=== PATIENT | female | born 1955 | race Caucasian/White ===

== ENCOUNTER 2024-07-19 10:23 | Emergency (ER) | payer BC, SELFPAY ==
--- NOTE | ~2024-07-19 | XR_ITS ---
CLINICAL HISTORY: foosh 4 view left wrist 3 view left hand Comparison: None Findings: Bones intact. No dislocations. No significant loss of joint space or osteophytes. No erosions. No radiopaque foreign body. IMPRESSION: 1. No acute findings. This document has been electronically signed by: Miller Dasilva MD on 07/19/2024 12:15:21
--- NOTE | ~2024-07-19 | CT_ITS ---
CLINICAL HISTORY: fall + head strike CT head without contrast Comparison: None Findings: No intra-axial mass, midline shift, hydrocephalus, or acute hemorrhage. Mild diffuse volume loss. There is no sinus or mastoid fluid. The orbits are unremarkable. There is no acute fracture. IMPRESSION: 1. No acute intracranial findings. This document has been electronically signed by: Jackson Loomis MD on 07/19/2024 14:47:23
--- NOTE | ~2024-07-19 | CT_ITS ---
CLINICAL HISTORY: fall on chin CT maxillofacial without contrast Comparison: None Findings: No acute fractures. Temporomandibular joints are intact. Paranasal sinuses and mastoid air cells clear. Left front maxillary tooth fracture (tooth 9). Acuity indeterminate. Orbital contents within normal limits. Visualized intracranial contents are within normal limits. No foreign bodies. IMPRESSION: No facial bone fracture identified. Left tooth #9 fracture, age-indeterminate This document has been electronically signed by: Jackson Loomis MD on 07/19/2024 14:45:45
--- NOTE | ~2024-07-19 | CT_ITS ---
CLINICAL HISTORY: fall CT cervical spine without contrast Comparison: None Findings: Normal vertebral body alignment. No significant degenerative change. No acute fractures or dislocations. No acute findings on limited view of the intracranial contents. Subcentimeter thyroid nodules are suggested. No consolidation or effusion at the lung apices. IMPRESSION: No acute findings. Subcentimeter thyroid nodules are suggested. Outpatient thyroid ultrasound could be considered This document has been electronically signed by: Jackson Loomis MD on 07/19/2024 14:45:49
[2024-07-19 11:16] VITALS: BP 132/75; PULSE 72; RESP 18; TEMP 36.6; O2SAT 97; BMI 20.4
--- NOTE | 2024-07-19 11:16 | ED_ITS ---
HPI - Fall General Chief Complaint: Fall Stated Complaint: fall injury to mouth and chin Time Seen by Provider: 07/19/24 14:08 Source: patient Mode of arrival: ambulatory Limitations: no limitations History of Present Illness ED Provider: yareli clark np HPI Narrative: patient is a 6-year-old female who presents emergency department for evaluation after a strictly mechanical trip and fall, reports that she tripped on uneven pavement believes her toe got caught on the area. She fell forward catching herself on a left outstretched hand with resultant chin strike to the ground. This subsequently dislodged her left central incisor which she brought with her and was placed in a cup of milk. She denies loss of consciousness, denies use of anticoagulants. She denies headache, dizziness, lightheadedness, neck pain, neck stiffness, chest pain, shortness of breath, nausea, vomiting, numbness or tingling of the extremities. Related Data Allergies Allergy/AdvReac Type Severity Reaction Status Date / Time No Known Allergies Allergy Verified 07/19/24 11:18 Review of Systems Review of Systems: Yes all other systems are reviewed and are negative [facility] Past Medical History Attestation statement: The following information was validated with the patient. Source: old records reviewed Physical Exam Vital Signs: Vital Signs: Last Vital Signs Temp 97.8 F 07/19/24 11:16 Pulse 72 07/19/24 11:16 Resp 18 07/19/24 11:16 BP 132/75 07/19/24 11:16 Pulse Ox 97 07/19/24 11:16 O2 Del Method Room Air 07/19/24 11:16 BMI result Body Mass Index 20.4 Appearance: Alert.?Oriented to person, place and time. No acute distress.?Normal affect. Head: Normocephalic, atraumatic Eyes: Pupils equal, round and reactive to light.? EOMI. No palpable periorbital deformities or ecchymosis ENT: Pharynx normal.??TM normal bilaterally. No rhinorrhea. No septal hematoma. TM normal bilaterally. Left central incisor avulsion, dried blood to the remaining socket, appears to have remaining root in the socket Neck: Normal inspection.? Neck supple.??No midline cervical spine tenderness, step-offs, deformities. Back: No midline thoracic or lumbar spine tenderness, step-offs, deformities. CVS: Heart sounds normal. Normal heart rate and rhythm.? Pulses normal.?? Respiratory: No respiratory distress.? Lung sounds clear to auscultation bilaterally?? Abdomen: Soft and non-tender. Normoactive bowel sounds Skin: Skin warm and dry.? Normal skin color.? Extremities: No lower extremity edema.? No calf ttp. Full range of motion to bilateral upper and lower extremities. 2+ DP/PT pulse, 2+ radial pulse bilaterally. Neuro: Moves all extremities spontaneously. Sensation intact bilaterally. CN II- XII intact. No focal neuro deficits. Course Course Course Narrative: This is a Rapid Medical Exam performed in triage by Treasure Whiteside PA-C. Full HPI, ROS and PE to be performed by primary ED provider. 69 yo F presenting to the ED c/o facial pain, head strike & loss of front tooth s/p mechanical trip & fall [employer] on uneven pavement. denies LOC or AC. Also reports left hand/wrist pain. PE: + left central incisor dislodged. No midline spinous tenderness or focal neuro deficits Plan: Head/C-spine/facial bone CT, wrist x-ray Medical Decision Making Medical Decision Making MDM Narrative: patient is a 69-year-old female who presents emergency department for evaluation after mechanical trip and fall resulting in a fall onto the left outstretched hand, struck option onto the ground and subsequently dislodged the left central incisor, on evaluation has dried blood to the remaining socket, appears to have remaining root favoring dental fracture rather than complete avulsion, tooth is in milk currently. Endorsing mild pain to this area. She denies any headache. Has no focal neurological deficits on examination. Given age and mechanism of injury obtaining CT head and cervical spine to exclude ICH, SDH, fracture, subluxation. XR of the left hand / wrist has been evaluated and is without acute osseous abnormality no fracture dislocation, pain likely secondary to mild sprain/contusion. Reports minimal pain at this time. Provide Chepe bandage and discussed conservative treatment. Regarding her dental avulsion, we discussed potential option for dental splinting in the emergency department until she is able to see her dental provider urgently, to discuss permanent reimplantation/ dental implant/root canal. patient declines dental splinting. CT head cervical spine without acute pathology, incidental finding of thyroid nodules to be followed up outpatient. Differential Diagnosis Differential Diagnoses: The differential diagnosis associated with the presentation includes (See narrative above) Independent Interpretation I performed an independent interpretation of an: CT Scan ( No ICH, no acute fracture to the left hand /wrist) Radiology Impression Discussion of test interpretation with radiology: I have reviewed the radiologist's reading. Radiologist Impression: XR 4 view left wrist XR 3 view left hand Comparison: None Findings: Bones intact. No dislocations. No significant loss of joint space or osteophytes. No erosions. No radiopaque foreign body. IMPRESSION: 1. No acute findings IMPRESSION: CT head/brain 1. No acute intracranial findings. IMPRESSION: CT cervical spine No acute findings. Subcentimeter thyroid nodules are suggested. Outpatient thyroid ultrasound could be considered Findings: No acute fractures. Temporomandibular joints are intact. Paranasal sinuses and mastoid air cells clear. Left front maxillary tooth fracture (tooth 9). Acuity indeterminate. Orbital contents within normal limits. Visualized intracranial contents are within normal limits. No foreign bodies. IMPRESSION: No facial bone fracture identified. Left tooth #9 fracture, age-indeterminate External Record Review External record reviewed: Outpatient record Prescription Management I considered prescription management with: Pain Medication ( acetaminophen) Discharge Plan Discharge Clinical Impression: Acute head injury without loss of consciousness, Fracture of tooth Patient Disposition: Home, Self-Care Instructions: Head Injury (ED), Acute Dental Trauma (ED), R.I.C.E. Treatment (ED) Additional Instructions: x-ray today has a left hand/ wrist does not show any evidence of acute fracture. With continued pain you may use an Chepe bandage wrapped around the wrist for comfort, rest over the next few days, apply ice for 10-15 minutes 4-6 times daily, in addition to acetaminophen for pain. You may elevate the wrist above the level of your chest to decrease any swelling that may occur. CT of the head facial bones and neck were overall unremarkable, no acute findings. Follow-up closely with your dental provider regarding the broken tooth, they will discuss with you options for treatment. remain well hydrated, avoid removing the dried blood from the socket, soft foods over the next few days until seen by dentist. There were however incidental finding of nodules in your thyroid, please discuss this with your primary care doctor as they may consider doing outpatient ultrasound of the thyroid and blood work regarding her thyroid. Referrals: Beverley Smith MD [Primary Care Provider] - Print Language: Irish
[2024-07-19 15:54] VITALS: BP 114/76; PULSE 79; RESP 16; TEMP 36.7; O2SAT 97
== END 2024-07-19 16:32 | disposition home or self-care (01) ==
PROVIDERS: Emergency Provider Emergency Medicine; PCP Internal Medicine
DX: S09.90XA Unspecified injury of head, initial encounter (principal); S02.5XXA Fracture of tooth (traumatic), initial encounter for closed fracture; M25.532 Pain in left wrist; W01.198A Fall on same level from slipping, tripping and stumbling with subsequent striking against other object, initial encounter; Y93.89 Activity, other specified; Y92.480 Sidewalk as the place of occurrence of the external cause; Y99.9 Unspecified external cause status
CPT/HCPCS: 70450; 70486; 72125; 73110; 73130; 99283; 99284

== ENCOUNTER → 2024-07-19 11:22 | Outpatient (BNV) | payer MEDICARE, SELFPAY | PROVIDERS: PCP Internal Medicine; Visit Provider Radiology Diagnostic Radiology | DX: S69.92XA Unspecified injury of left wrist, hand and finger(s), initial encounter (principal); S19.9XXA Unspecified injury of neck, initial encounter; S09.93XA Unspecified injury of face, initial encounter; S09.90XA Unspecified injury of head, initial encounter | CPT/HCPCS: 70450; 70486; 72125; 73110; 73130 ==